=== PATIENT | male | born 1940 | race African-American/Black ===

== ENCOUNTER 2019-08-17 03:38 | Emergency (ER) | payer OTHER ==
[~2019-08-17] VITALS: Ht 188 cm; Wt 109.0 kg
[2019-08-17 04:48] LABS: BASOPHILS % 0.9 % (0.0-2.0); HEMATOCRIT. 46.3 % (42.0-52.0); HEMOGLOBIN. 14.9 g/dL (14.0-18.0); LYMPHOCYTES % 11.4 % (20.0-50.0); MEAN CORPUSCULAR HEMOGLOBIN 27.8 pg (28.0-32.0); MEAN CORPUSCULAR VOLUME 86.4 fL (80.0-94.0); MEAN PLATELET VOLUME 10.3 fl (7.4-10.4); MONOCYTES % 10.1 % (2.0-8.0); NEUTROPHILS % 77.6 % (40.0-76.0); PLATELET 183 x1000/uL (130-400); RED BLOOD CELL COUNT 5.36 mill/uL (4.7-6.1); RED CELL DISTRIBUTION WIDTH 15.2 % (11.6-14.6)
[2019-08-17 04:53] LABS: CHLORIDE 106 mEq/L (98-107)
[2019-08-17 04:57] LABS: ETHANOL BLOOD < 10 mg/dL
[2019-08-17] MEDS ORDERED: METOPROLOL TARTRATE 100MG TABLET PO ONE (05:45)
[2019-08-17] MEDS ORDERED: CLONIDINE 0.3MG TABLET PO ONE (05:45)
[2019-08-17 07:05] VITALS: BP 174/75
== END 2019-08-17 08:13 | disposition short-term general hospital (02) ==
LOC: ER 03:38
DX: I16.0 Hypertensive urgency (principal); R53.1 Weakness; Z91.81 History of falling; E11.9 Type 2 diabetes mellitus without complications; Z74.1 Need for assistance with personal care; Z91.14 Patient's other noncompliance with medication regimen
CPT/HCPCS: 36415; 71045; 80320; 82140; 82962; 93005; 99285; G0480

== ENCOUNTER 2020-11-07 08:08 | Emergency (ER) | payer OTHER ==
[~2020-11-07] VITALS: Ht 177.8 cm; Wt 113.0 kg
[2020-11-07] MEDS ORDERED: PIPERACILLIN/TAZ 3.375G PREMIX 50 ML IV ONE (08:30)
[2020-11-07] MEDS ORDERED: SODIUM CHLORIDE 0.9% 1,000 ML IV ONE (08:30)
[2020-11-07] MEDS ORDERED: VANCOMYCIN 1 G PREMIX 200 ML IV SCH (08:30)
[2020-11-07 09:34] LABS: BASOPHILS % 0.4 % (0.0-2.0); EOSINOPHILS % 1.4 % (0.0-5.0); HEMATOCRIT. 37.1 % (42.0-52.0); HEMOGLOBIN. 11.7 g/dL (14.0-18.0); LYMPHOCYTES % 23.7 % (20.0-50.0); MEAN CORPUSCULAR HEMOGLOBIN 25.2 pg (28.0-32.0); MEAN CORPUSCULAR VOLUME 80.3 fL (80.0-94.0); MEAN PLATELET VOLUME 9.4 fl (7.4-10.4); NEUTROPHILS % 69.5 % (40.0-76.0); PLATELET 297 x1000/uL (130-400); RED BLOOD CELL COUNT 4.62 mill/uL (4.7-6.1); RED CELL DISTRIBUTION WIDTH 18.7 % (11.6-14.6)
[2020-11-07 09:40] LABS: CHLORIDE 110 mEq/L (98-107)
[2020-11-07 09:45] LABS: C REACTIVE PROTEIN QUANT 7.6 mg/L (0.0-3.0)
[2020-11-07] MEDS ORDERED: ASPIRIN 325MG TABLET PO ONE (10:15)
[2020-11-07] MEDS ORDERED: FUROSEMIDE 20MG/2ML VIAL IVP ONE (10:15)
[2020-11-07] MEDS ORDERED: ONDANSETRON HCL 4MG/2ML INJ IV ONE (10:45)
[2020-11-07] MEDS ORDERED: MORPHINE SULFATE 4 MG/ML CPJ (NOT FOR IM USE) IV ONE (10:45)
[2020-11-07] MEDS ORDERED: DILTIAZEM HCL 5MG/ML 5ML VIAL IV ONE (12:45)
[2020-11-07 15:23] VITALS: BP 126/85
== END 2020-11-07 16:08 | disposition short-term general hospital (02) ==
LOC: ER 09:08
DX: E11.69 Type 2 diabetes mellitus with other specified complication (principal); L08.89 Other specified local infections of the skin and subcutaneous tissue; I13.2 Hypertensive heart and chronic kidney disease with heart failure and with stage 5 chronic kidney disease, or end stage renal disease; I50.9 Heart failure, unspecified; I48.91 Unspecified atrial fibrillation; M85.872 Other specified disorders of bone density and structure, left ankle and foot; E11.22 Type 2 diabetes mellitus with diabetic chronic kidney disease; N18.6 End stage renal disease; Z99.2 Dependence on renal dialysis; Z89.611 Acquired absence of right leg above knee; Z79.899 Other long term (current) drug therapy
CPT/HCPCS: 36415; 71045; 73630; 80053; 82962; 83605; 83880; 84484; 85025; 85730; 86140; 87040; 87086; 93005; 96365; 96366; 96368; 96375; 99285; J1940; J2270; J2405; J2543; J3370; J3490; J7030

== ENCOUNTER 2020-12-04 14:22 | Inpatient (IN) | payer OTHER ==
[~2020-12-04] VITALS: Ht 185.4 cm; Wt 94.3 kg
[2020-12-04] VITALS (17 sets, daily range): BP systolic 87–157; BP diastolic 42–99
[2020-12-04] MEDS ORDERED: VANCOMYCIN 1 G PREMIX 200 ML IV SCH ×2 (15:00→19:15)
[2020-12-04] MEDS ORDERED: PIPERACILLIN/TAZOBACTAM 3.375GM/50ML PREMIX IV NR (15:00)
[2020-12-04 15:24] LABS: BASOPHILS % 0.6 % (0.0-2.0); EOSINOPHILS % 0.5 % (0.0-5.0); HEMOGLOBIN. 8.1 g/dL (14.0-18.0); LYMPHOCYTES % 22.5 % (20.0-50.0); MEAN CORPUSCULAR HEMOGLOBIN 25.9 pg (28.0-32.0); MEAN CORPUSCULAR VOLUME 82.4 fL (80.0-94.0); MONOCYTES % 8.7 % (2.0-8.0); NEUTROPHILS % 67.7 % (40.0-76.0); PLATELET 188 x1000/uL (130-400); RED BLOOD CELL COUNT 3.15 mill/uL (4.7-6.1); RED CELL DISTRIBUTION WIDTH 19.7 % (11.6-14.6)
[2020-12-04 15:31] LABS: CHLORIDE 106 mEq/L (98-107)
[2020-12-04] MEDS ORDERED: SODIUM CHLORIDE 0.9% 1,000 ML IV ONE (15:45)
[2020-12-04 15:52] LABS: CREATINE KINASE 1206 IU/L (39-308)
[2020-12-04] MEDS ORDERED: DEXTROSE 50% WATER 50ML SYRINGE IV NR (15:55)
[2020-12-04] MEDS ORDERED: FUROSEMIDE 40MG/4ML VIAL IVP NR (15:55)
[2020-12-04] MEDS ORDERED: INSULIN REGULAR (HUMULIN R) 300UNITS/3ML VIAL IV NR (15:56)
[2020-12-04] MEDS ORDERED: SODIUM POLYSTYRENE SULFONATE 15 G/60 ML BOT PO NR (15:56)
[2020-12-04] MEDS ORDERED: CALCIUM GLUCONATE 100MG/ML 10ML VIAL IV NR (15:57)
[2020-12-04] MEDS ORDERED: ENOXAPARIN 100MG/ML SYR SUBCUT NR (16:43)
[2020-12-04] MEDS ORDERED: DILTIAZEM HCL 5MG/ML 5ML VIAL IV PRN (17:45)
[2020-12-04] MEDS: DILTIAZEM HCL 60MG TABLET PO SCH (18:55)
[2020-12-04] MEDS ORDERED: CLONIDINE 0.1MG TABLET PO PRN (19:15)
[2020-12-04] MEDS ORDERED: DOCUSATE SODIUM 100MG CAPSULE PO PRN (19:15)
[2020-12-04] MEDS ORDERED: ONDANSETRON HCL 4MG/2ML INJ IV PRN (19:15)
[2020-12-04] MEDS ORDERED: PIPERACILLIN/TAZ 3.375G PREMIX 50 ML IV SCH (19:15)
[2020-12-04] MEDS ORDERED: ACETAMINOPHEN 325MG TABLET PO PRN (19:15)
[2020-12-04] MEDS ORDERED: GUAIFENESIN 200MG/10ML SUGAR FREE UDC PO PRN (19:15)
[2020-12-04] MEDS ORDERED: HYDROCODONE/ACETAMINOPHEN 5/325MG TABLET PO PRN (19:15)
[2020-12-04] MEDS ORDERED: MAGNESIUM/ALUMINUM HYDROXIDE/SIMETHICONE 30ML UDC PO PRN (19:15)
[2020-12-04] MEDS: PIPERACILLIN/TAZOBACTAM 2.25 G in DEXTROSE 5% WATER 50 ML IV SCH (20:57)
[2020-12-04] MEDS ORDERED: DEXTROSE 50% WATER 50ML SYRINGE IV PRN (21:30)
[2020-12-04] MEDS: BLOOD SUGAR DIAGNOSTIC STRIP TEST SCH (21:39)
[2020-12-04] MEDS: INSULIN LISPRO 100 UNITS/ML SUBCUT SCH (21:40)
[2020-12-04 23:58] LABS: FIBRINOGEN 300 mg/dL (200-400)
[2020-12-05] VITALS (47 sets, daily range): BP systolic 74–141; BP diastolic 34–111
[2020-12-05 00:01] LABS: PROTHROMBIN TIME > 100.0 sec (9.6-11.0)
[2020-12-05 00:26] LABS: INR > 10.0
[2020-12-05] MEDS: DILTIAZEM HCL 60MG TABLET PO SCH ×4 (00:37→18:01)
[2020-12-05] MEDS: PIPERACILLIN/TAZOBACTAM 2.25 G in DEXTROSE 5% WATER 50 ML IV SCH ×4 (02:59→20:27)
[2020-12-05 05:46] LABS: BASOPHILS % 0.6 % (0.0-2.0); EOSINOPHILS % 0.9 % (0.0-5.0); HEMATOCRIT. 26.5 % (42.0-52.0); HEMOGLOBIN. 8.2 g/dL (14.0-18.0); LYMPHOCYTES % 17.6 % (20.0-50.0); MEAN CORPUSCULAR HEMOGLOBIN 25.7 pg (28.0-32.0); MEAN CORPUSCULAR VOLUME 82.8 fL (80.0-94.0); MEAN PLATELET VOLUME 9.4 fl (7.4-10.4); MONOCYTES % 6.7 % (2.0-8.0); NEUTROPHILS % 74.2 % (40.0-76.0); PLATELET 201 x1000/uL (130-400); RED BLOOD CELL COUNT 3.21 mill/uL (4.7-6.1); RED CELL DISTRIBUTION WIDTH 20.3 % (11.6-14.6)
[2020-12-05 06:07] LABS: CREATINE KINASE MB FRACTION 9.1 ng/mL (0.5-3.6)
[2020-12-05] MEDS: INSULIN LISPRO 100 UNITS/ML SUBCUT SCH ×4 (07:00→20:26)
[2020-12-05] MEDS: BLOOD SUGAR DIAGNOSTIC STRIP TEST SCH ×4 (07:04→20:25)
[2020-12-05] MEDS ORDERED: ENOXAPARIN 30MG/0.3ML SYR SUBCUT SCH (09:00)
[2020-12-05] MEDS: SODIUM CHLORIDE 0.9% 1,000 ML IV SCH (10:00)
[2020-12-05] MEDS ORDERED: VANCOMYCIN 1 G PREMIX 200 ML IV NR (10:30)
[2020-12-05 11:48] LABS: BASOPHILS % 0.7 % (0.0-2.0); EOSINOPHILS % 0.7 % (0.0-5.0); HEMATOCRIT. 24.7 % (42.0-52.0); HEMOGLOBIN. 7.8 g/dL (14.0-18.0); LYMPHOCYTES % 17.7 % (20.0-50.0); MEAN CORPUSCULAR HEMOGLOBIN 25.8 pg (28.0-32.0); MEAN CORPUSCULAR VOLUME 81.5 fL (80.0-94.0); MEAN PLATELET VOLUME 9.2 fl (7.4-10.4); MONOCYTES % 6.7 % (2.0-8.0); NEUTROPHILS % 74.2 % (40.0-76.0); PLATELET 218 x1000/uL (130-400); RED BLOOD CELL COUNT 3.03 mill/uL (4.7-6.1); RED CELL DISTRIBUTION WIDTH 19.7 % (11.6-14.6)
[2020-12-05 13:39] LABS: CLARITY URINE CLEAR (CLEAR); COLOR URINE YELLOW (YELLOW); KETONES URINE NEGATIVE (NEGATIVE); LEUKOCYTE ESTERASE URINE TRACE (NEGATIVE); NITRITE URINE NEGATIVE (NEGATIVE); OCCULT BLOOD URINE NEGATIVE (NEGATIVE); PROTEIN URINE NEGATIVE (NEGATIVE); SPECIFIC GRAVITY URINE 1.019 (1.005-1.030); UROBILINOGEN URINE 0.2 E.U./dL (0.2-1.0)
[2020-12-05] MEDS: HYDROMORPHONE HCL/PF 2MG/ML CPJ IV PRN (15:13)
[2020-12-05 20:57] LABS: PROTHROMBIN TIME 63.5 sec (9.6-11.0)
[2020-12-05 22:21] LABS: INR 6.9
[2020-12-06] VITALS (25 sets, daily range): BP systolic 79–142; BP diastolic 40–101
[2020-12-06] MEDS: PIPERACILLIN/TAZOBACTAM 2.25 G in DEXTROSE 5% WATER 50 ML IV SCH ×4 (02:18→21:05)
[2020-12-06 05:56] LABS: BASOPHILS % 0.5 % (0.0-2.0); EOSINOPHILS % 2.3 % (0.0-5.0); HEMATOCRIT. 23.4 % (42.0-52.0); HEMOGLOBIN. 7.4 g/dL (14.0-18.0); LYMPHOCYTES % 17.6 % (20.0-50.0); MEAN CORPUSCULAR HEMOGLOBIN 25.8 pg (28.0-32.0); MEAN CORPUSCULAR VOLUME 81.2 fL (80.0-94.0); MEAN PLATELET VOLUME 9.1 fl (7.4-10.4); MONOCYTES % 7.5 % (2.0-8.0); NEUTROPHILS % 72.1 % (40.0-76.0); PLATELET 219 x1000/uL (130-400); RED BLOOD CELL COUNT 2.89 mill/uL (4.7-6.1)
[2020-12-06] MEDS: DILTIAZEM HCL 60MG TABLET PO SCH ×2 (06:00)
[2020-12-06] MEDS: INSULIN LISPRO 100 UNITS/ML SUBCUT SCH ×4 (06:25→20:31)
[2020-12-06] MEDS: BLOOD SUGAR DIAGNOSTIC STRIP TEST SCH ×4 (06:25→20:31)
[2020-12-06 06:31] LABS: VITAMIN B12 SERUM 1308 pg/mL (211-911)
[2020-12-06] MEDS ORDERED: MAGNESIUM 2 G PREMIX 50 ML IV SCH (08:00)
[2020-12-06] MEDS ORDERED: DIGOXIN 125MCG TABLET PO NR (09:45)
[2020-12-06] MEDS: MAGNESIUM OXIDE 400MG TABLET PO SCH (09:50)
[2020-12-06 13:07] LABS: ANTI-NUCLEAR ANTIBODIES DIRECT Positive (Negative)
[2020-12-06] MEDS: DILTIAZEM HCL 30MG TABLET PO SCH ×3 (13:19→23:45)
[2020-12-06 13:24] LABS: INR 3.8; PROTHROMBIN TIME 36.5 sec (9.6-11.0)
[2020-12-06] MEDS: SODIUM CHLORIDE 0.9% 1,000 ML IV SCH (17:15)
[2020-12-06] MEDS ORDERED: EPOETIN ALFA-EPBX 10,000 UNIT/ML VIAL SUBCUT SCH (21:00)
[2020-12-06] MEDS ORDERED: VANCOMYCIN 1 G PREMIX 200 ML IV NR (23:00)
[2020-12-07] VITALS (10 sets, daily range): BP systolic 102–141; BP diastolic 66–83
[2020-12-07] MEDS: HYDROMORPHONE HCL/PF 2MG/ML CPJ IV PRN (02:33)
[2020-12-07] MEDS: PIPERACILLIN/TAZOBACTAM 2.25 G in DEXTROSE 5% WATER 50 ML IV SCH ×3 (02:50→16:25)
[2020-12-07] MEDS: DILTIAZEM HCL 30MG TABLET PO SCH ×2 (05:33→13:17)
[2020-12-07] MEDS: INSULIN LISPRO 100 UNITS/ML SUBCUT SCH ×2 (06:21→12:40)
[2020-12-07] MEDS: BLOOD SUGAR DIAGNOSTIC STRIP TEST SCH ×2 (06:21→12:10)
[2020-12-07 06:34] LABS: BASOPHILS % 0.6 % (0.0-2.0); HEMOGLOBIN. 9.4 g/dL (14.0-18.0); LYMPHOCYTES % 13.7 % (20.0-50.0); MEAN CORPUSCULAR HEMOGLOBIN 26.9 pg (28.0-32.0); MEAN CORPUSCULAR VOLUME 83.1 fL (80.0-94.0); MEAN PLATELET VOLUME 9.1 fl (7.4-10.4); MONOCYTES % 10.2 % (2.0-8.0); NEUTROPHILS % 73.5 % (40.0-76.0); PLATELET 206 x1000/uL (130-400); RED BLOOD CELL COUNT 3.49 mill/uL (4.7-6.1)
[2020-12-07] MEDS: MAGNESIUM OXIDE 400MG TABLET PO SCH (09:00)
[2020-12-07] MEDS ORDERED: MAGNESIUM 2 G PREMIX 50 ML IV SCH (10:00)
[2020-12-07 14:16] LABS: INR 1.9; PROTHROMBIN TIME 19.8 sec (9.6-11.0)
[2020-12-07] MEDS ORDERED: VANCOMYCIN 1 G PREMIX 200 ML IV SCH (18:00)
[2020-12-07] MEDS ORDERED: ENOXAPARIN 80MG/0.8ML SYR SUBCUT SCH (21:00)
== END 2020-12-07 17:00 | disposition short-term general hospital (02) | DRG 602 ==
LOC: ER 14:22 → MICUSO 16:29 → EDBEDREQ 16:33 → EDBEDREQSVC 16:33 → ENRESERV 16:51 → MICUSO 19:00 → 8WST 12-06 10:44
PROVIDERS: ADMIT Hospitalist; ATTEND Hospitalist
PROC: 0HBRXZZ Excision of Toe Nail, External Approach (ICD-10-PCS; 2020-12-05)
PROC: 0HBRXZZ Excision of Toe Nail, External Approach (ICD-10-PCS; 2020-12-05)
PROC: 0HBRXZZ Excision of Toe Nail, External Approach (ICD-10-PCS; 2020-12-05)
PROC: 0HBRXZZ Excision of Toe Nail, External Approach (ICD-10-PCS; 2020-12-05)
PROC: 0HBRXZZ Excision of Toe Nail, External Approach (ICD-10-PCS; 2020-12-05)
PROC: 30233N1 Transfusion of Nonautologous Red Blood Cells into Peripheral Vein, Percutaneous Approach (ICD-10-PCS; principal; 2020-12-06)
PROC: 05HY33Z Insertion of Infusion Device into Upper Vein, Percutaneous Approach (ICD-10-PCS; 2020-12-06)
PROC: B54MZZA Ultrasonography of Right Upper Extremity Veins, Guidance (ICD-10-PCS; 2020-12-06)
DX: L03.116 Cellulitis of left lower limb (principal); I21.4 Non-ST elevation (NSTEMI) myocardial infarction; N17.0 Acute kidney failure with tubular necrosis; G93.40 Encephalopathy, unspecified; D68.9 Coagulation defect, unspecified; I13.0 Hypertensive heart and chronic kidney disease with heart failure and stage 1 through stage 4 chronic kidney disease, or unspecified chronic kidney disease; I50.20 Unspecified systolic (congestive) heart failure; I82.411 Acute embolism and thrombosis of right femoral vein; E44.0 Moderate protein-calorie malnutrition; E11.51 Type 2 diabetes mellitus with diabetic peripheral angiopathy without gangrene; I48.91 Unspecified atrial fibrillation; I87.2 Venous insufficiency (chronic) (peripheral); E87.5 Hyperkalemia; I87.8 Other specified disorders of veins; L60.2 Onychogryphosis; Z20.822 Contact with and (suspected) exposure to COVID-19; E78.00 Pure hypercholesterolemia, unspecified; D64.9 Anemia, unspecified; E11.22 Type 2 diabetes mellitus with diabetic chronic kidney disease; N18.9 Chronic kidney disease, unspecified; E78.5 Hyperlipidemia, unspecified; R74.01 Elevation of levels of liver transaminase levels; I77.1 Stricture of artery; Z89.611 Acquired absence of right leg above knee; Z82.49 Family history of ischemic heart disease and other diseases of the circulatory system; Z83.3 Family history of diabetes mellitus; Z86.73 Personal history of transient ischemic attack (TIA), and cerebral infarction without residual deficits; Z95.2 Presence of prosthetic heart valve; Z68.27 Body mass index [BMI] 27.0-27.9, adult
CPT/HCPCS: 36415; 71045; 73590; 73630; 76770; 76937; 80048; 80053; 80076; 80202; 81003; 82550; 82553; 82607; 82728; 82962; 83036; 83540; 83550; 83605; 83615; 83735; 83880; 84100; 84145; 84443; 84484; 85025; 85044; 85384; 86038; 86140; 86160; 86850; 86900; 86920; 93005; 93306; 93880; 93922; 93971; 97022; 97161; 99291; A6261; C1725; C1893; J0610; J0885; J1170; J1650; J1815; J1940; J2543; J3370; J3475; J7030; J7040; J7060; P9016; U0003